=== PATIENT | male | born 1950 | race Caucasian/White ===

== ENCOUNTER 2022-01-28 12:58 | Emergency (ER) | payer OTHER ==
[2022-01-28 13:53] LABS: #Basophils 0.1 10x3/uL (0.0-0.2); #Eosinphils 0.1 10x3/uL (0.0-0.5); #Monocytes 0.9 10x3/uL (0.0-1.1); %Basophils 0.8 % (0.0-2.0); %Eosinophils 0.9 % (0.0-6.0); %Lymphocytes 6.2 % (18.0-47.0); %Neutrophils 77.6 % (40.0-75.0); Hemoglobin 10.8 g/dL (13.5-17.5); Mean Corpuscular HGB CONC 32.7 g/dL (32.0-36.0); Mean Corpuscular Hemoglobin 28.4 pg (27.0-33.0); Mean Corpuscular Volume 86.8 fl (81.2-95.1); Mean Platelet Volume 10.2 fl (7.4-10.4); Platelet Count 249 10x3/uL (150-450); RBC Distribution Width 15.1 % (11.5-14.5); White Blood Cell (WBC) Count 6.4 10x3/uL (3.5-10.5)
[2022-01-28 14:17] LABS: ALT (SGPT) 24 U/L (8-55); AST (SGOT) 61 U/L (5-34); Albumin 3.2 g/dL (3.4-4.8); Alkaline Phosphatase 200 U/L (40-110); Anion Gap 14 mmol/L (10-20); BUN (Urea Nitrogen) 11 mg/dL (8.4-25.7); Bilirubin, Total 1.2 mg/dL (0.2-1.2); Calc. Creatinine Clearance 0 mL/min (70-130); Calcium 8.1 mg/dL (7.8-10.44); Carbon Dioxide 21 mmol/L (23-31); Chloride 103 mmol/L (98-107); Globulin 4.3 g/dL (2.4-3.5); Glucose 117 mg/dL (83-110); Lipase 74 U/L (8-78); Potassium 4.3 mmol/L (3.5-5.1); Protein, Total 7.5 g/dL (5.8-8.1); Sodium 134 mmol/L (136-145)
[2022-01-28 14:28] LABS: SARS-CoV-2 NAA Rapid Test Not Detected (NotDetected)
[2022-01-28] MEDS ORDERED: Lidocaine 1% w/Epinephrine 1:100K 20 ML VIAL ONE (15:02)
[2022-01-28 16:00] LABS: BF Color Yellow; Body Fluid Source Ascites Body Fluid; Clarity Clear (Clear); Tube # EDTA
[2022-01-28 16:38] LABS: BF Segmented Neutrophils 6 %; Cell Count Non Hematic 71 %; Eosinophils 1 %; Lymphocytes 22 %
[2022-01-28 17:22] LABS: Bilirubin Neg (Negative); Blood, Urine 10 (Negative); Clarity Clear (Clear); Glucose, Urine (Dipstick) Normal (Negative); Ketone, Urine 15 mg/dL (Negative); Leukocyte 25 (Negative); Nitrite Negative (Negative); Protein, Urine (Dipstick) 15 mg/dl (Neg-Trace); Urobilinogen Normal mg/dL (Less than 2)
[2022-01-28 17:40] LABS: RBC/HPF 0-3 HPF (0-3); Squamous Epithelial 0-3 HPF (0-3)
[2022-01-28 17:41] LABS: Bacteria/HPF Rare-Few HPF (None Seen); Mucous/LPF 1+ LPF (<2+)
== END 2022-01-28 17:36 ==
LOC: CSHERS 12:58
DX: K74.60 Unspecified cirrhosis of liver (principal); R18.8 Other ascites; Z20.822 Contact with and (suspected) exposure to COVID-19; J44.9 Chronic obstructive pulmonary disease, unspecified; I11.0 Hypertensive heart disease with heart failure; I50.9 Heart failure, unspecified; E10.9 Type 1 diabetes mellitus without complications; K21.9 Gastro-esophageal reflux disease without esophagitis; M19.90 Unspecified osteoarthritis, unspecified site
CPT/HCPCS: 36415; 49083; 80053; 81003; 81015; 82042; 82140; 82945; 83690; 84157; 84484; 85025; 87070; 87086; 87205; 89051; 93005; U0002

== ENCOUNTER 2022-02-18 15:10 | Emergency (ER) | payer OTHER ==
[2022-02-18] MEDS ORDERED: Morphine 4 MG/ML VIAL ONE (15:30)
[2022-02-18] MEDS ORDERED: Ondansetron PF 4 MG/2 ML Vial ONE (15:30)
[2022-02-18 15:43] LABS: #Basophils 0.1 10x3/uL (0.0-0.2); #Eosinphils 0.1 10x3/uL (0.0-0.5); #Monocytes 0.7 10x3/uL (0.0-1.1); #Neutrophils 4.4 10x3/uL (1.5-8.4); %Basophils 1.3 % (0.0-2.0); %Lymphocytes 9.7 % (18.0-47.0); %Monocytes 12.1 % (0.0-10.0); %Neutrophils 74.6 % (40.0-75.0); Hemoglobin 10.8 g/dL (13.5-17.5); Mean Corpuscular HGB CONC 32.1 g/dL (32.0-36.0); Mean Corpuscular Hemoglobin 27.1 pg (27.0-33.0); Mean Corpuscular Volume 84.4 fl (81.2-95.1); Mean Platelet Volume 10.5 fl (7.4-10.4); Platelet Count 243 10x3/uL (150-450); RBC Distribution Width 14.7 % (11.5-14.5); Red Blood Cell (RBC) Count 3.98 10x6/uL (4.32-5.72)
[2022-02-18 15:59] LABS: ALT (SGPT) 31 U/L (8-55); AST (SGOT) 79 U/L (5-34); Albumin 3.1 g/dL (3.4-4.8); Alkaline Phosphatase 306 U/L (40-110); Anion Gap 16 mmol/L (10-20); BUN (Urea Nitrogen) 10 mg/dL (8.4-25.7); Bilirubin, Total 1.4 mg/dL (0.2-1.2); Calc. Creatinine Clearance 0 mL/min (70-130); Calcium 8.4 mg/dL (7.8-10.44); Carbon Dioxide 19 mmol/L (23-31); Chloride 101 mmol/L (98-107); Globulin 4.9 g/dL (2.4-3.5); Glucose 109 mg/dL (83-110); Lipase 39 U/L (8-78); Potassium 3.9 mmol/L (3.5-5.1); Sodium 132 mmol/L (136-145)
[2022-02-18] MEDS ORDERED: Lidocaine 1% w/Epinephrine 1:100K 20 ML VIAL ONE (16:36)
[2022-02-18 17:45] LABS: BF Color Yellow; Body Fluid Source Paracentesis Fluid; Clarity Clear (Clear); Tube # EDTA
[2022-02-18 18:26] LABS: Cell Count Non Hematic 56 %
[2022-02-18 18:27] LABS: BF Segmented Neutrophils 20 %
[2022-02-18 18:28] LABS: Lymphocytes 24 %
== END 2022-02-18 18:56 ==
LOC: CSHERS 15:10
DX: R18.0 Malignant ascites (principal); R06.00 Dyspnea, unspecified; K21.9 Gastro-esophageal reflux disease without esophagitis; J44.9 Chronic obstructive pulmonary disease, unspecified; I11.0 Hypertensive heart disease with heart failure; I50.9 Heart failure, unspecified
CPT/HCPCS: 36415; 49083; 80053; 83690; 85025; 87205; 89051; 93005; 96374; 96375; J2270; J2405

== ENCOUNTER 2022-02-25 11:44 | Emergency (ER) | payer OTHER ==
[~2022-02-25 11:44] MED LIST: Iopamidol 300 61% 100 ML VIAL FS ONE
[2022-02-25 13:26] LABS: #Basophils 0.1 10x3/uL (0.0-0.2); #Eosinphils 0.1 10x3/uL (0.0-0.5); #Monocytes 0.8 10x3/uL (0.0-1.1); #Neutrophils 5.7 10x3/uL (1.5-8.4); %Basophils 0.8 % (0.0-2.0); %Eosinophils 0.8 % (0.0-6.0); %Lymphocytes 6.6 % (18.0-47.0); %Monocytes 11.3 % (0.0-10.0); %Neutrophils 80.1 % (40.0-75.0); Hemoglobin 11.8 g/dL (13.5-17.5); Mean Corpuscular HGB CONC 33.1 g/dL (32.0-36.0); Mean Corpuscular Hemoglobin 26.4 pg (27.0-33.0); Mean Corpuscular Volume 79.9 fl (81.2-95.1); Mean Platelet Volume 9.8 fl (7.4-10.4); Platelet Count 319 10x3/uL (150-450); RBC Distribution Width 14.6 % (11.5-14.5); Red Blood Cell (RBC) Count 4.47 10x6/uL (4.32-5.72); White Blood Cell (WBC) Count 7.1 10x3/uL (3.5-10.5)
[2022-02-25 14:02] LABS: ALT (SGPT) 23 U/L (8-55); AST (SGOT) 70 U/L (5-34); Albumin 3.3 g/dL (3.4-4.8); Alkaline Phosphatase 279 U/L (40-110); Anion Gap 16 mmol/L (10-20); BUN (Urea Nitrogen) 12 mg/dL (8.4-25.7); Bilirubin, Total 1.4 mg/dL (0.2-1.2); Calc. Creatinine Clearance 0 mL/min (70-130); Calcium 8.7 mg/dL (7.8-10.44); Carbon Dioxide 22 mmol/L (23-31); Chloride 96 mmol/L (98-107); Globulin 5.4 g/dL (2.4-3.5); Glucose 131 mg/dL (83-110); Lipase 59 U/L (8-78); Potassium 3.9 mmol/L (3.5-5.1); Protein, Total 8.7 g/dL (5.8-8.1); Sodium 130 mmol/L (136-145)
[2022-02-25] MEDS ORDERED: Lidocaine 1% w/Epinephrine 1:100K 20 ML VIAL ONE (14:03)
[2022-02-25] MEDS ORDERED: Morphine 4 MG/ML VIAL ONE (14:03)
[2022-02-25 14:42] LABS: SARS-CoV-2 NAA Rapid Test Not Detected (NotDetected)
[2022-02-25] MEDS ORDERED: Albumin 25% 200 ML ONE (15:13)
[2022-02-25] MEDS ORDERED: Cefepime 2 GM VIAL ONE (15:13)
[2022-02-25 15:17] LABS: BF Color Yellow; Body Fluid Source Paracentesis Fluid; Clarity Hazy (Clear); Tube # 1
[2022-02-25 15:56] LABS: BF Segmented Neutrophils 8 %; Cell Count Non Hematic 69 %; Lymphocytes 23 %
[2022-02-25] MEDS ORDERED: Enoxaparin Sodium 100 MG/ML SYRINGE ONE (18:20)
== END 2022-02-25 20:15 | disposition short-term general hospital (02) ==
LOC: CSHERS 11:44
DX: R18.0 Malignant ascites (principal); I81 Portal vein thrombosis; I47.2 Ventricular tachycardia; I11.0 Hypertensive heart disease with heart failure; I50.9 Heart failure, unspecified; E10.9 Type 1 diabetes mellitus without complications; J44.9 Chronic obstructive pulmonary disease, unspecified; K21.9 Gastro-esophageal reflux disease without esophagitis; M19.90 Unspecified osteoarthritis, unspecified site; Z20.822 Contact with and (suspected) exposure to COVID-19
CPT/HCPCS: 49083; 71045; 74177; 80053; 82945; 83690; 85025; 87070; 87205; 89051; 93005; 96365; 96366; 96368; 96372; 96375; J0692; J1650; J2270; P9047; Q9967; U0002

== ENCOUNTER 2023-03-26 11:01 | Inpatient (IN) | payer OTHER ==
[2023-03-26] MEDS ORDERED: Pantoprazole 40 MG VIAL ONE (11:32)
[2023-03-26] MEDS ORDERED: Octreotide Acetate 100 MCG/ML VIAL ONE (11:33)
[2023-03-26] MEDS ORDERED: Octreotide Acetate 50 MCG/ML AMP ONE (11:33)
[2023-03-26] MEDS ORDERED: Pantoprazole 80 MG, Admixture Fee 1 EACH in Sodium Chloride 0.9% 100 ML IVPB SCH ×2 (11:45→14:00)
[2023-03-26] MEDS ORDERED: Octreotide Acetate 1,250 MCG in Sodium Chloride 0.9% 250 ML 250 ML IVPB SCH (11:45)
[2023-03-26 11:53] LABS: #Basophils 0.1 10x3/uL (0.0-0.2); #Monocytes 0.9 10x3/uL (0.0-1.1); #Neutrophils 7.4 10x3/uL (1.5-8.4); %Basophils 0.5 % (0.0-2.0); %Eosinophils 0.3 % (0.0-6.0); %Lymphocytes 7.8 % (18.0-47.0); %Monocytes 10.1 % (0.0-10.0); %Neutrophils 79.5 % (40.0-75.0); Hemoglobin 9.9 g/dL (13.5-17.5); Mean Corpuscular HGB CONC 32.6 g/dL (32.0-36.0); Mean Corpuscular Hemoglobin 28.9 pg (27.0-33.0); Mean Corpuscular Volume 88.6 fl (81.2-95.1); Mean Platelet Volume 10.7 fl (7.4-10.4); Platelet Count 208 10x3/uL (150-450); Red Blood Cell (RBC) Count 3.43 10x6/uL (4.32-5.72); White Blood Cell (WBC) Count 9.3 10x3/uL (3.5-10.5)
[2023-03-26 11:56] LABS: INR-International Normal Ratio 1.1; Prothrombin Time 12.1 sec (9.5-12.1)
[2023-03-26 11:59] LABS: PTT Less than 20.0 sec (22.0-33.0)
[2023-03-26 12:02] LABS: ALT (SGPT) 19 U/L (8-55); AST (SGOT) 27 U/L (5-34); Albumin 2.7 g/dL (3.4-4.8); Alkaline Phosphatase 170 U/L (40-110); Anion Gap 14 mmol/L (10-20); BUN (Urea Nitrogen) 54 mg/dL (8.4-25.7); Calc. Creatinine Clearance 0 mL/min (70-130); Calcium 7.9 mg/dL (7.8-10.44); Carbon Dioxide 21 mmol/L (23-31); Chloride 103 mmol/L (98-107); Estimated GFR 87; Globulin 3.4 g/dL (2.4-3.5); Glucose 265 mg/dL (83-110); Potassium 5.2 mmol/L (3.5-5.1); Protein, Total 6.1 g/dL (5.8-8.1); Sodium 133 mmol/L (136-145)
[2023-03-26] MEDS ORDERED: Ondansetron PF 4 MG/2 ML Vial IVP PRN (13:54)
[2023-03-26] MEDS ORDERED: Glucagon 1 MG/ML KIT IM PRN (14:02)
[2023-03-26] MEDS ORDERED: Dextrose 50% Abboject 50 ML SYRINGE SLOW IVP PRN (14:02)
[2023-03-26] MEDS ORDERED: Dextrose 5% in Water 1,000 ML IV PRN (14:02)
[2023-03-26] MEDS: cefTRIAXone\\ROCEPHIN 1 GM in Sodium Chloride 0.9% 100 ML IVPB SCH (16:54)
[2023-03-26] MEDS: HumaLOG 300 UNITS/3 ML VIAL SC PRN (17:47)
[2023-03-26 18:00] LABS: Hemoglobin 8.2 g/dL (13.5-17.5)
[2023-03-26 23:18] LABS: Hemoglobin 8.3 g/dL (13.5-17.5)
[2023-03-27 04:44] LABS: #Eosinphils 0.2 10x3/uL (0.0-0.5); #Monocytes 0.9 10x3/uL (0.0-1.1); #Neutrophils 9.5 10x3/uL (1.5-8.4); %Basophils 0.3 % (0.0-2.0); %Eosinophils 1.3 % (0.0-6.0); %Lymphocytes 7.4 % (18.0-47.0); %Monocytes 7.8 % (0.0-10.0); %Neutrophils 82.2 % (40.0-75.0); Hemoglobin 8.2 g/dL (13.5-17.5); Mean Corpuscular HGB CONC 32.2 g/dL (32.0-36.0); Mean Corpuscular Hemoglobin 28.4 pg (27.0-33.0); Mean Corpuscular Volume 88.2 fl (81.2-95.1); Mean Platelet Volume 10.8 fl (7.4-10.4); Platelet Count 234 10x3/uL (150-450); RBC Distribution Width 14.4 % (11.5-14.5); Red Blood Cell (RBC) Count 2.89 10x6/uL (4.32-5.72); White Blood Cell (WBC) Count 11.5 10x3/uL (3.5-10.5)
[2023-03-27 04:47] LABS: BUN (Urea Nitrogen) 44 mg/dL (8.4-25.7); Calc. Creatinine Clearance 97 mL/min (70-130); Carbon Dioxide 20 mmol/L (23-31); Chloride Less than 65 mmol/L (98-107); Estimated GFR 91; Glucose 211 mg/dL (83-110)
[2023-03-27 04:54] LABS: Potassium 4.8 mmol/L (3.5-5.1); Sodium 141 mmol/L (136-145)
[2023-03-27 05:32] LABS: HBSAg Index 0.17 S/CO (0-0.99); Hep B Surf Ag Non-Reactive S/CO (NonReactive)
[2023-03-27] MEDS: HumaLOG 300 UNITS/3 ML VIAL SC PRN ×3 (11:05→23:50)
[2023-03-27] MEDS: Octreotide Acetate 1,250 MCG in Sodium Chloride 0.9% 250 ML 250 ML IVPB SCH (12:38)
[2023-03-27 14:44] LABS: HBSAB Concentration Less than 8.00 mIU/mL; Hep B Surf AB Non-Reactive (NonReactive)
[2023-03-27 14:47] LABS: Hep C IgG Ab Reflex HepC Qnt S/CO (NonReactive); Hep C Index 11.84 S/CO (0-0.79)
[2023-03-27] MEDS ORDERED: PROPOFOL 20 ML ONE (15:28)
[2023-03-27] MEDS ORDERED: Ondansetron PF 4 MG/2 ML Vial ONE ×2 (15:28→15:52)
[2023-03-27] MEDS ORDERED: Lidocaine 1% PF 5 ML VIAL ONE (15:28)
[2023-03-27] MEDS ORDERED: Succinylcholine 200 MG/10 ml SYRINGE FS ONE (15:33)
[2023-03-27] MEDS ORDERED: PHENYLEPHRINE-NS 100 MCG/ML 10 ML SYRINGE ONE (15:33)
[2023-03-27] MEDS ORDERED: Glycopyrrolate 0.2 MG/ML 5 ML SYRINGE ONE (15:58)
[2023-03-27] MEDS ORDERED: SUGAMMADEX SODIUM 200 MG/2 ML VIAL ONE (16:18)
[2023-03-27] MEDS: cefTRIAXone\\ROCEPHIN 1 GM in Sodium Chloride 0.9% 100 ML IVPB SCH (17:47)
[2023-03-27] MEDS ORDERED: Ventolin HFA Inhaler 60 PUFF INHALER INH PRN (19:31)
[2023-03-27] MEDS: Pantoprazole 40 MG VIAL IVP SCH (20:13)
[2023-03-28 03:55] LABS: #Basophils 0.1 10x3/uL (0.0-0.2); #Eosinphils 0.3 10x3/uL (0.0-0.5); #Neutrophils 8.1 10x3/uL (1.5-8.4); %Basophils 0.7 % (0.0-2.0); %Eosinophils 2.7 % (0.0-6.0); %Lymphocytes 8.4 % (18.0-47.0); %Monocytes 9.1 % (0.0-10.0); %Neutrophils 77.2 % (40.0-75.0); Hemoglobin 8.1 g/dL (13.5-17.5); Mean Corpuscular Hemoglobin 28.6 pg (27.0-33.0); Mean Corpuscular Volume 92.2 fl (81.2-95.1); Mean Platelet Volume 10.6 fl (7.4-10.4); Platelet Count 206 10x3/uL (150-450); RBC Distribution Width 14.6 % (11.5-14.5); Red Blood Cell (RBC) Count 2.83 10x6/uL (4.32-5.72); White Blood Cell (WBC) Count 10.5 10x3/uL (3.5-10.5)
[2023-03-28 04:04] LABS: Anion Gap 12 mmol/L (10-20); BUN (Urea Nitrogen) 24 mg/dL (8.4-25.7); Calc. Creatinine Clearance 96 mL/min (70-130); Calcium 7.5 mg/dL (7.8-10.44); Carbon Dioxide 20 mmol/L (23-31); Chloride 109 mmol/L (98-107); Estimated GFR 91; Glucose 212 mg/dL (83-110); Potassium 3.8 mmol/L (3.5-5.1); Sodium 137 mmol/L (136-145)
[2023-03-28] MEDS: HumaLOG 300 UNITS/3 ML VIAL SC PRN ×3 (05:49→17:52)
[2023-03-28] MEDS: Pantoprazole 40 MG VIAL IVP SCH ×2 (08:21→21:12)
[2023-03-28] MEDS: Insulin NPH Human Isophane 100 UNITS/ML (10 ML VIAL) SQ SCH ×2 (08:22→21:12)
[2023-03-28 12:49] LABS: Hemoglobin 8.4 g/dL (13.5-17.5)
[2023-03-28] MEDS: Octreotide Acetate 1,250 MCG in Sodium Chloride 0.9% 250 ML 250 ML IVPB SCH (15:53)
[2023-03-28] MEDS: cefTRIAXone\\ROCEPHIN 1 GM in Sodium Chloride 0.9% 100 ML IVPB SCH (15:54)
[2023-03-29 04:18] LABS: Hemoglobin 8.6 g/dL (13.5-17.5); Platelet Count 194 10x3/uL (150-450)
[2023-03-29] MEDS: Nadolol 40 MG TAB PO SCH (07:54)
[2023-03-29] MEDS: Pantoprazole 40 MG VIAL IVP SCH ×2 (07:55→20:40)
[2023-03-29] MEDS: Insulin NPH Human Isophane 100 UNITS/ML (10 ML VIAL) SQ SCH ×2 (08:00→20:37)
[2023-03-29] MEDS ORDERED: Nadolol 40 MG TAB PO SCH (09:00)
[2023-03-29] MEDS: cefTRIAXone\\ROCEPHIN 1 GM in Sodium Chloride 0.9% 100 ML IVPB SCH (16:02)
[2023-03-29] MEDS: HumaLOG 300 UNITS/3 ML VIAL SC PRN (17:00)
[2023-03-30] MEDS: HumaLOG 300 UNITS/3 ML VIAL SC PRN ×2 (00:23→23:40)
[2023-03-30 04:18] LABS: #Basophils 0.1 10x3/uL (0.0-0.2); #Eosinphils 0.4 10x3/uL (0.0-0.5); #Monocytes 0.8 10x3/uL (0.0-1.1); #Neutrophils 7.1 10x3/uL (1.5-8.4); %Basophils 0.5 % (0.0-2.0); %Eosinophils 4.1 % (0.0-6.0); %Lymphocytes 9.3 % (18.0-47.0); %Monocytes 8.5 % (0.0-10.0); %Neutrophils 74.2 % (40.0-75.0); Hemoglobin 8.8 g/dL (13.5-17.5); Mean Corpuscular HGB CONC 32.1 g/dL (32.0-36.0); Mean Corpuscular Volume 90.4 fl (81.2-95.1); Mean Platelet Volume 12.2 fl (7.4-10.4); Platelet Count 165 10x3/uL (150-450); RBC Distribution Width 15.4 % (11.5-14.5); Red Blood Cell (RBC) Count 3.03 10x6/uL (4.32-5.72); White Blood Cell (WBC) Count 9.6 10x3/uL (3.5-10.5)
[2023-03-30 04:25] LABS: ALT (SGPT) 15 U/L (8-55); AST (SGOT) 28 U/L (5-34); Albumin 2.8 g/dL (3.4-4.8); Alkaline Phosphatase 134 U/L (40-110); Anion Gap 10 mmol/L (10-20); BUN (Urea Nitrogen) 12 mg/dL (8.4-25.7); Bilirubin, Total 0.7 mg/dL (0.2-1.2); Calc. Creatinine Clearance 101 mL/min (70-130); Calcium 7.6 mg/dL (7.8-10.44); Carbon Dioxide 23 mmol/L (23-31); Chloride 108 mmol/L (98-107); Estimated GFR 93; Globulin 3.4 g/dL (2.4-3.5); Glucose 97 mg/dL (83-110); Protein, Total 6.2 g/dL (5.8-8.1); Sodium 137 mmol/L (136-145)
[2023-03-30 05:46] VITALS: BMI 30.2
[2023-03-30] MEDS: Insulin NPH Human Isophane 100 UNITS/ML (10 ML VIAL) SQ SCH ×2 (08:15→21:10)
[2023-03-30] MEDS: Nadolol 40 MG TAB PO SCH (08:15)
[2023-03-30] MEDS: Pantoprazole 40 MG VIAL IVP SCH ×2 (08:16→21:03)
[2023-03-30] MEDS: cefTRIAXone\\ROCEPHIN 1 GM in Sodium Chloride 0.9% 100 ML IVPB SCH (16:04)
[2023-03-30 22:07] LABS: HCV RNA, log10 1.602 (.); Hep C PCR-Quant 40 IU/mL (.)
[2023-03-31 03:53] LABS: #Basophils 0.1 10x3/uL (0.0-0.2); #Eosinphils 0.3 10x3/uL (0.0-0.5); #Monocytes 0.9 10x3/uL (0.0-1.1); %Basophils 0.7 % (0.0-2.0); %Eosinophils 2.8 % (0.0-6.0); %Lymphocytes 7.8 % (18.0-47.0); Hemoglobin 8.6 g/dL (13.5-17.5); Mean Corpuscular HGB CONC 32.1 g/dL (32.0-36.0); Mean Corpuscular Volume 90.2 fl (81.2-95.1); Platelet Count 204 10x3/uL (150-450); RBC Distribution Width 15.4 % (11.5-14.5); Red Blood Cell (RBC) Count 2.97 10x6/uL (4.32-5.72); White Blood Cell (WBC) Count 9.2 10x3/uL (3.5-10.5)
[2023-03-31] MEDS: Nadolol 40 MG TAB PO SCH (08:00)
[2023-03-31] MEDS: Pantoprazole 40 MG VIAL IVP SCH (08:01)
[2023-03-31] MEDS: Insulin NPH Human Isophane 100 UNITS/ML (10 ML VIAL) SQ SCH (08:02)
[2023-03-31 09:55] VITALS: TEMP 98.8
[2023-03-31 10:08] VITALS: BP 107/55
== END 2023-03-31 11:30 | DRG 432 ==
LOC: EEVIPCON 11:01 → CSHERS 11:01 → CSHICU 16:36
PROVIDERS: ADMIT Internal Medicine; ATTEND Family Medicine
PROC: 06L38CZ Occlusion of Esophageal Vein with Extraluminal Device, Via Natural or Artificial Opening Endoscopic (ICD-10-PCS; principal; 2023-03-27)
PROC: 30233N1 Transfusion of Nonautologous Red Blood Cells into Peripheral Vein, Percutaneous Approach (ICD-10-PCS; 2023-03-27)
DX: K74.60 Unspecified cirrhosis of liver (principal); I85.11 Secondary esophageal varices with bleeding; R18.8 Other ascites; D62 Acute posthemorrhagic anemia; K76.6 Portal hypertension; J44.9 Chronic obstructive pulmonary disease, unspecified; E11.9 Type 2 diabetes mellitus without complications; K21.9 Gastro-esophageal reflux disease without esophagitis; I50.9 Heart failure, unspecified; J45.909 Unspecified asthma, uncomplicated; M19.90 Unspecified osteoarthritis, unspecified site; E87.5 Hyperkalemia; K31.89 Other diseases of stomach and duodenum; B18.2 Chronic viral hepatitis C; I11.0 Hypertensive heart disease with heart failure; E87.6 Hypokalemia; Z88.8 Allergy status to other drugs, medicaments and biological substances; Z90.49 Acquired absence of other specified parts of digestive tract; Z98.890 Other specified postprocedural states
CPT/HCPCS: 36415; 36416; 36430; 76705; 80048; 80053; 85014; 85018; 85025; 85049; 85610; 85730; 86706; 86803; 86850; 86900; 86901; 87340; 87522; 94760; 96374; 96375; 96376; C9113; J0696; J1815; J2354; J2405; J2704; J3490; J7050; P9016

== ENCOUNTER 2023-08-08 12:55 | Emergency (ER) | payer OTHER ==
[2023-08-08 17:47] LABS: BF Color Yellow; Body Fluid Source Ascites Body Fluid; Clarity Clear (Clear); Tube # EDTA
[2023-08-08 18:22] LABS: BF Segmented Neutrophils 1 %; Cell Count Non Hematic 58 %; Lymphocytes 41 %
== END 2023-08-08 17:42 ==
LOC: CSHERS 12:55
DX: R18.8 Other ascites (principal); J44.9 Chronic obstructive pulmonary disease, unspecified; I11.0 Hypertensive heart disease with heart failure; I50.9 Heart failure, unspecified; E11.9 Type 2 diabetes mellitus without complications
CPT/HCPCS: 82945; 87070; 87205; 89051; 99285